=== PATIENT | male | born 1985 | race African-American/Black ===

== ENCOUNTER 2020-05-13 20:27 | Emergency (ER) | payer OTHER ==
[~2020-05-13] VITALS: Ht 167.6 cm; Wt 77.1 kg
[~2020-05-13 20:27] MED LIST: DOXYCYCLINE 10100 MG PO; NOHOMEMEDICATIONS
[2020-05-13] MEDS ORDERED: CLONAZEPAM 0.50.5 M1 PO (20:41)
[2020-05-13] MEDS ORDERED: SUBOXONE 8 MG-1 EAC3 SUBLING (22:33)
[2020-05-13 22:39] VITALS: BP 140/63
== END 2020-05-13 22:40 | disposition home or self-care (01) ==
LOC: M.ERS 20:27
DX: U07.1 COVID-19 (principal); F17.210 Nicotine dependence, cigarettes, uncomplicated